=== PATIENT | female | born 1960 | race Caucasian/White ===

== ENCOUNTER 2017-06-15 10:10 | Emergency (ER) | payer OTHER ==
[~2017-06-15 10:10] MED LIST: Flovent 220 M220 MCG INH; HYDROCODONE BIT1 T11 PO; PROVENTIL0.09 MG/A1 INH
[2017-06-15] MEDS ORDERED: QVAR8.7 GM INH (10:11)
== END 2017-06-15 11:57 | disposition home or self-care (01) ==
LOC: ED 10:10
DX: M25.562 Pain in left knee (principal); X50.1XXA Overexertion from prolonged static or awkward postures, initial encounter; Y93.39 Activity, other involving climbing, rappelling and jumping off; Y92.89 Other specified places as the place of occurrence of the external cause; Y99.8 Other external cause status